=== PATIENT | female | born 1965 | race Caucasian/White ===

== ENCOUNTER 2017-01-14 12:36 | Emergency (ER) | payer OTHER ==
--- NOTE | ~2017-01-14 | CR229 ---
[facility] A Service of [facility] & [facility] RADIOLOGY TEXT RESULTS PATIENT: BRANT FISHMAN LOCATION: [facility] : 63 UNIT #: [id number] AGE: [address]: VIDYA MASTERS SEX: F ORDER DR: [id number] [facility] [address] [place], [place] [address] [id number] MR#: [id number] Acc #: [id number] NAME: BRANT FISHMAN. : 1965 SEX: F STUDY DATE/TIME: 01/14/2017 13:29 UNIT: [facility] ROOM: STUDY DESCRIPTION: CR Shoulder Min 2 View Lt Attending Physician: Vidya Masters Aprn Ordering Physician: Vidya Masters Aprn MEDICAL IMAGING REPORT This report is preliminary unless electronic signature is present EXAM Left shoulder. DATE OF EXAM 01/14/2017 HISTORY 51-year-old female with left shoulder pain, status post fall today. COMPARISON None. FINDINGS 3 views of the left shoulder demonstrate no acute fracture or dislocation. Acromioclavicular joint is unremarkable. Soft tissues are unremarkable. IMPRESSION Unremarkable left shoulder. Dictated by... Chetan Jimenez M.D. THIS IS AN ELECTRONICALLY VERIFIED REPORT Chetan Jimenez M.D. at 01/15/2017 8:13 AM MANISHA/maria guadalupe TD: 01/14/2017 17:18 JOB #: [id number] MEDICAL IMAGING REPORT Page 1 of 1 COPY
[~2017-01-14 12:36] MED LIST: ALPRAZOLAM PO; COUMADIN5 MG PO; HYDROCODON-ACE1 EAC1 PO; HYDROCODON-ACE1 EAC7 PO; HYDROCODON-ACE1 EACH PO; KLONOPIN1 MG PO; LORTAB 101 TAB 10/5 PO; LOVENOX SUBQ; METOPROLOL TART25 MG PO; MOBIC15 MG PO; PERCOCET 10-651 EACH PO; PHENERGAN DM1 ML PO; PHENERGAN25 MG PO; XANAX1 MG PO
[2017-01-14 13:51] LABS: URINE SOURCE CLEAN CATCH
[2017-01-14 14:02] LABS: URINE APPEARANCE TURBID; URINE BILIRUBIN NEG (NEG); URINE BLOOD NEG (NEG); URINE COLOR YELLOW; URINE GLUCOSE NEG (NEG); URINE KETONE NEG (NEG); URINE LEUKOCYTE ESTERASE 2+ (NEG); URINE NITRATE POS (NEG); URINE PH 6.5 (5-8); URINE PROTEIN TRACE (NEG); URINE SPECIFIC GRAVITY 1.022 (1.003-1.035)
[2017-01-14 14:04] LABS: CULTURE INDICATED? YES; URINE BACTERIA AUWI 4+ (NEGATIVE); URINE SQUAMOUS EPITHELIAL CELL MOD /[HPF]; UWBCS1 AUWI 100-200 (0-5)
== END 2017-01-14 15:00 | disposition home or self-care (01) ==
LOC: CFTX 12:36
PROVIDERS: Nurse Practitioner Family
DX: S46.912A Strain of unspecified muscle, fascia and tendon at shoulder and upper arm level, left arm, initial encounter (principal); F17.210 Nicotine dependence, cigarettes, uncomplicated; N39.0 Urinary tract infection, site not specified; Z79.899 Other long term (current) drug therapy; X58.XXXA Exposure to other specified factors, initial encounter
CPT/HCPCS: 73030; 81003; 87086; 87088; 87186; 99283

== ENCOUNTER 2017-02-28 16:05 | Emergency (ER) | payer OTHER ==
--- NOTE | ~2017-02-28 | HP ---
Unit #: [id number] #: [id number] Patient: BRANT FISHMAN [id number] [address] [place], [place] [address] [id number] I MR#: [id number] NAME: BRANT FISHMAN. ROOM: 8[address]37 Age: 51 Sex: F Admission Date: 02/28/2017 : 1965 Attending Physician: Lizzy Valero M.D. HISTORY AND PHYSICAL CHIEF COMPLAINT Facial swelling, shortness of breath. HISTORY OF PRESENT ILLNESS The patient is a 51-year-old female with a past medical history of COPD, uterine cancer, and polysubstance abuse, who presented to the emergency department for evaluation of the above. The patient states that she was in her usual state of health until about a week ago. She states that she her hair about eight days ago and started having facial swelling under the eyes and cheeks. Initially, she thought that maybe it was a reaction to the hair dye. She states that the swelling progressed to involve both arms. She has been intermittently short of breath, although she does have COPD. She reports an occasional nonproductive cough at baseline. She denies any fever. She has had night sweats. She denies any change in her weight. She states that she had an episode of right-sided chest pain a few weeks ago but none currently. Of note, the patient saw her primary care physician last week. Blood work was done, and she was told that it was normal. She was scheduled to follow up tomorrow with her primary care physician. In the emergency department, initial oxygen saturation was 100% on room air, respirations 18, and temperature 97.7. Chest x-ray showed right hilar fulness concerning for mass. CT of the chest was done and showed a spiculated mass, as well as right hilar lymphadenopathy versus mass all concerning for malignancy. The ER physician, Dr. Stewart, spoke with the radiologist regarding SVC involvement, and although it was not listed in the voice clip, he commented that the SVC was 70% stenosed in association with the mass. She is being admitted to [facility] for evaluation and further treatment. PAST MEDICAL HISTORY 1. Admission to [facility] March 24-2011, for acute respiratory failure secondary to polysubstance overdose requiring intubation. She also developed sepsis secondary to strep pneumo pneumonia. She also had a right upper extremity DVT in association with PICC line. 2. Uterine cancer, status post hysterectomy. 3. Chronic obstructive pulmonary disease with continued tobacco abuse. 4. History of polysubstance abuse, currently in the methadone clinic. PAST SURGICAL HISTORY 1. Hysterectomy. Unit #: [id number] #: [id number] Patient: BRANT FISHMAN 2. Colonoscopy. SOCIAL HISTORY The patient lives with her significant other. They have apparently been together for about 30 years. She smokes a pack of cigarettes daily. She denies alcohol use. She denies current illicit drug use. Toxicology screen from 2011 was positive for cocaine, methadone, and benzodiazepine. Toxicology screen today is positive for methadone and amphetamine. FAMILY HISTORY Notable for her father having prostate cancer. Her mother had "heart problems." ALLERGIES No known allergies. HOME MEDICATIONS Methadone. REVIEW OF SYSTEMS A complete review of systems is negative except as indicated in the History of Present Illness. The patient was treated for a urinary tract infection about two weeks ago with an unknown antibiotic. PHYSICAL EXAMINATION VITAL SIGNS: Temperature is 97.7, pulse 94, respirations 18, blood pressure 124/80, and oxygen saturation 100% on room air. GENERAL: Patient is a female who is awake, alert, and in no acute distress. HEENT: Head is atraumatic. There is periorbital edema (right greater than left). There is also edema involving the face with no appreciable erythema. NECK: Supple. There is extensive venous distention (right greater than left). CARDIOVASCULAR: Regular rate and rhythm. LUNGS: Relatively clear to auscultation bilaterally with no increased work of breathing. ABDOMEN: Soft and nontender with bowel sounds present in all four quadrants. EXTREMITIES: There is edema of bilateral upper extremities that is nonpitting. NEUROLOGIC: Patient is awake and alert. She follows commands. PSYCHIATRIC: Mood and affect are normal. Patient is cooperative. SKIN: Skin of examined areas is warm and dry. DIAGNOSTIC STUDIES LABORATORY: Toxicology screen is positive for methadone and amphetamine. Complete blood count notable for hemoglobin and hematocrit of 11.3 and 34.9, respectively. Urinalysis notable for 1+ leukocyte esterase, 25-50 white blood cells, and 4+ bacteria. Comprehensive metabolic panel notable for albumin of 3.4. BNP is 30. IMAGING: CT of the chest shows a spiculated mass involving the right lung with associated right hilar lymphadenopathy versus mass. The superior vena cava demonstrates 70% stenosis in association with the mass at the level of the right pulmonary artery. Chest x-ray shows right hilar fullness concerning for mass. Unit #: [id number] #: [id number] Patient: BRANT FISHMAN The patient is a 51-year-old female with: 1. 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 2. Hilar mass concerning for malignancy. 3. Chronic obstructive pulmonary disease with continued tobacco abuse. 4. Normocytic anemia. 5. Urinary tract infection. 6. History of uterine cancer. 7. History of polysubstance abuse, currently in methadone clinic. PLAN 1. Admit to intermediate level. 2. Healthy heart diet if passes bedside swallow. 3. N.p.o. after midnight for possible procedure. 4. Elevate head of bed. 5. Supplemental oxygen. 6. Continuous pulse oximetry. 7. P.r.n. DuoNebs. 8. Consult Dr. Humphries regarding hilar mass. The ER physician spoke with him regarding this patient, and he agrees to see her in consultation. 9. Consult Dr. Clarke regarding hilar mass concerning for malignancy. 10. Check EKG and cardiac enzymes. 11. P.r.n. Toradol. 12. P.r.n. Zofran. 13. P.r.n. Tylenol. 14. Urine culture and sensitivity on urine in the lab. 15. Rocephin 1 gram IV daily pending results of urine culture. 16. Repeat labs in the morning including INR. 17. Regarding code status, the patient is a Full Code. 1. Dictated by Musa Kahn TD: 02/28/2017 20:40 JOB #: [id number] HISTORY AND PHYSICAL Page 1 of 1 X Lizzy Valero MD HISTORY AND PHYSICAL
--- NOTE | ~2017-02-28 | CR72 ---
[facility] A Service of [facility] & [facility] & [facility] RADIOLOGY TEXT RESULTS PATIENT: BRANT FISHMAN [id number] 63 UNIT #: [id number] AGE: [address]: Shweta Stewart MD SEX: F ORDER DR: [id number] [facility] [address] [place], [place] [address] [id number] I MR#: [id number] Acc #: [id number] NAME: BRANT FISHMAN : 1965 SEX: F STUDY DATE/TIME: 02/28/2017 17:23 UNIT: [facility] ROOM: [id number] STUDY DESCRIPTION: CR Chest Single View Portable Attending Physician: Lizzy Valero M.D. Ordering Physician: Shweta Stewart M.D. MEDICAL IMAGING REPORT This report is preliminary unless electronic signature is present EXAM Portable chest HISTORY Shortness of air, facial swelling. History of uterine cancer, longstanding smoker. FINDINGS Portable view of the chest demonstrates a right hilar fullness and/or mass. There is also a small amount of right upper lobe scarring. Background parenchymal changes suggest mild emphysema. No effusions. Heart and great vessels unremarkable. Osseous structures appear normal. Given the patient's clinical history of shortness of air and facial swelling, concern could be made for possible SVC obstruction due to the patient's suspected right hilar mass. Followup cross-sectional imaging may be warranted. Dictated by... Joan Brooks M.D. THIS IS AN ELECTRONICALLY VERIFIED REPORT Joan Brooks M.D. at 03/01/2017 2:48 PM ROBERT/samir TD: 03/01/2017 00:20 JOB #: [id number] MEDICAL IMAGING REPORT Page 1 of 1 COPY
--- NOTE | ~2017-02-28 | EKG ---
PATIENT: BRANT FISHMAN UNIT #: [id number] Ventricular Rate: 79 BPM Atrial Rate: 79 BPM P-R Interval: 164 ms QRS Duration: 68 ms Q-T Interval: 404 ms QTC Calculation(Bezet): 463 ms P [place]: 68 degrees Calculated R [place]: 50 degrees Calculated T [place]: 61 degrees Diagnosis Line: Normal sinus rhythm Diagnosis Line: Normal ECG Diagnosis Line: When compared with ECG of 04-APR-2012 16:05, Diagnosis Line: Premature ventricular complexes are no longer Diagnosis Line: Present Diagnosis Line: Confirmed by HARRIS OLIVER MD ([id number]) on Diagnosis Line: 02/28/2017 10:57:53 PM INTERPRETING MD: MARIBEL
--- NOTE | ~2017-02-28 | CT16 ---
[facility] A Service of [facility] & [facility] RADIOLOGY TEXT RESULTS PATIENT: BRANT FISHMAN [id number] [birth year] UNIT #: [id number] AGE: [address]: Shweta Stewart MD SEX: F ORDER DR: [id number] [facility] [address] [place], [place] [address] [id number] I MR#: [id number] [facility] #: [id number] NAME: BRANT FISHMAN : 1965 SEX: F STUDY DATE/TIME: 02/28/2017 18:21 UNIT: [facility] ROOM: [id number] STUDY DESCRIPTION: CT Angio Chest for PE Attending Physician: Lizzy Valero M.D. Ordering Physician: Shweta Stewart M.D. MEDICAL IMAGING REPORT This report is preliminary unless electronic signature is present EXAM CT of the chest with contrast, PE protocol. INDICATIONS Shortness of breath for [address] of the chest was performed following the administration of IV contrast using the pulmonary embolism protocol. Coronal and sagittal reformatted images were obtained. This CT exam was performed with one or more of the following radiation dose reduction techniques: Automatic exposure control, adjustment of mA and/or kV according to patient size, and iterative reconstruction. Comparison is made with chest x-ray from today and chest CT from 02/10/2011. FINDINGS 2.4 x 1.5 cm spiculated mass in the right upper lobe. Mass extends into the right hilar region. Abnormal irregular parenchymal density in the posterior right upper lobe measuring 2.3 x 4.0 cm. Tiny nodule inferior right upper lobe on image 63. Curvilinear atelectasis and trace pleural fluid at the right base. Emphysema. There is a large mass/conglomerate of lymphadenopathy within the right paratracheal region in the right hilum. Index mass measures 4.7 x 5.1 cm. There is no evidence for pulmonary embolism; however, the mass does completely encase the right upper lobe branch pulmonary artery. It also immediately abuts and lies superior to the truncus arteriosus. Limited imaging of the upper abdomen is unremarkable. The bone windows are unremarkable. STS. [facility] A Service of [facility] & [facility] RADIOLOGY TEXT RESULTS PATIENT: BRANT FISHMAN [id number] [birth year] UNIT #: [id number] AGE: [address]: Shweta Stewart MD SEX: F ORDER DR: IMPRESSION Abnormal exam with findings strongly suspicious for lung cancer. There is a 2.4 cm spiculated mass in the right upper lobe and a large 4.0 x 2.3 cm irregular parenchymal consolidation more superiorly in the right upper lobe. Also, there is abnormal mass/lymphadenopathy within the right paratracheal region in the right hilum with abrupt cutoff of the right upper lobe pulmonary artery branch due to the mass. There is no evidence for pulmonary embolism. There is trace amount of right pleural fluid. Dictated by... Rogelio Brooks M.D. THIS IS AN ELECTRONICALLY VERIFIED REPORT Rogelio Brooks M.D. at 03/02/2017 3:24 PM JESSIE/alex TD: 03/01/2017 01:33 JOB #: [id number] MEDICAL IMAGING REPORT Page 1 of 1 COPY
[2017-02-28 17:22] LABS: URINE SOURCE CLEAN CATCH
[2017-02-28 17:27] LABS: BASOPHIL# 0.1 X10e3 (0-0.3); BASOPHIL% 1.4 % (0-2.5); EOSINOPHIL# 0.2 X10e3 (0-0.7); EOSINOPHIL% 4.2 % (0.0-7.0); HEMATOCRIT 34.9 % (35.0-45.0); HEMOGLOBIN 11.3 gm/dL (12.0-16.0); LYMPHOCYTE# 1.8 X10e3 (1.0-3.5); LYMPHOCYTE% 32.5 % (17.0-45.0); MEAN CELL VOLUME 87.3 FL (83-96); MEAN CORPUSCULAR HEMOGLOBIN 28.1 PG (28-34); MEAN CORPUSCULAR HGB CONC 32.2 g/dL (30-36); MEAN PLATELET VOLUME 7.8 FL (6.5-11.5); MONOCYTE# 0.5 X10e3 (0-1.0); NEUTROPHIL% 52.9 % (40-75); PLATELET COUNT 215 X10e3 (140-420); RED CELL DISTRIBUTION WIDTH 14.6 % (11.0-15.5); WHITE BLOOD COUNT 5.6 X10e3 (4.0-10.5)
[2017-02-28 17:28] LABS: DIFF IND NO
[2017-02-28 17:31] LABS: URINE APPEARANCE CLOUDY; URINE BILIRUBIN NEG (NEG); URINE BLOOD NEG (NEG); URINE COLOR YELLOW; URINE GLUCOSE NEG (NEG); URINE KETONE NEG (NEG); URINE LEUKOCYTE ESTERASE 1+ (NEG); URINE NITRATE NEG (NEG); URINE PH 6.5 (5-8); URINE PROTEIN NEG (NEG); URINE SPECIFIC GRAVITY 1.021 (1.003-1.035)
[2017-02-28 17:34] LABS: CULTURE INDICATED? YES; URBCS1 AUWI 0-2 /[HPF] (0-2); URINE BACTERIA AUWI 4+ (NEGATIVE); URINE SQUAMOUS EPITHELIAL CELL MOD /[HPF]; UWBCS1 AUWI 25-50 (0-5)
[2017-02-28 17:49] LABS: AMPHETAMINE POS (NEG); BARBITURATES NEG (NEG); BENZODIAZEPINES NEG (NEG); COCAINE NEG (NEG); MARIJUANA NEG (NEG); OPIATES NEG (NEG); TRICYCLIC ANTIDEPRESSANTS NEG (NEG); U METHADONE POS (NEG)
[2017-02-28 17:55] LABS: ALBUMIN SERUM 3.4 g/dL (3.5-5.0); ALKALINE PHOSPHATASE 74 U/L (32-92); ALT (SGPT) 18 U/L (10-40); AST (SGOT) 21 U/L (10-42); BILIRUBIN,TOTAL 0.5 mg/dL (0.2-2.0); BLOOD UREA NITROGEN 13 mg/dL (9-23); BUN/CREATININE RATIO 18.57; CALCIUM SERUM 8.5 mg/dL (8.4-10.2); CARBON DIOXIDE 29 mmol/L (22-31); CHLORIDE 102 mmol/L (100-111); CREATININE SERUM 0.7 mg/dL (0.6-1.4); GLOM FILT RATE Estimated 99.6 mL/min (>60); GLUCOSE FASTING 74 mg/dL (70-110); POTASSIUM 3.7 mmol/L (3.5-5.1); PROTEIN TOTAL SERUM 6.9 g/dL (6.0-8.3); SODIUM 136 mmol/L (135-145)
[2017-02-28 17:57] LABS: BILIRUBIN, DIRECT <0.1 mg/dL (0.0-0.2); BILIRUBIN,INDIRECT 0.4 mg/dL (0.0-0.9)
[2017-02-28 21:08] LABS: %MB 5.3 % (0.0-4.0); MB 6.9 ng/ml
[2017-02-28] MEDS ORDERED: PRAVACHOL PO (21:19)
[2017-02-28] MEDS ORDERED: METOPROLOL SUCC25 MG PO (21:19)
[2017-02-28] MEDS ORDERED: NEXIUM PO (21:19)
[2017-02-28] MEDS ORDERED: HYDRALAZINE HCL25 MG PO (21:19)
[2017-02-28] MEDS ORDERED: DICYCLOMINE HCL20 MG PO (21:20)
[2017-02-28] MEDS ORDERED: CYMBALTA30 MG PO (21:20)
[2017-02-28] MEDS ORDERED: BUMEX2 MG PO (21:20)
[2017-02-28] MEDS ORDERED: OXCARBAZEPINE150 MG PO (21:21)
[2017-02-28] MEDS ORDERED: AMLODIPINE BESYL5 MG PO (21:21)
[2017-02-28] MEDS ORDERED: CARBATROL200 MG PO (21:22)
[2017-02-28] MEDS ORDERED: SUMATRIPTAN SUC25 MG PO (21:22)
[2017-02-28] MEDS ORDERED: DOCUSATE SODIU100 MG PO (21:23)
[2017-02-28] MEDS ORDERED: LOPERAMIDE HCL2 M1 PO (21:23)
[2017-02-28] MEDS ORDERED: PHENERGAN PO (21:23)
[2017-02-28] MEDS ORDERED: FLOVENT DISKUS50 MCG INH (21:24)
[2017-02-28] MEDS ORDERED: ATROVENT HFA12.9 G1 INH (21:25)
[2017-02-28] MEDS ORDERED: ALBUTEROL17 GM INH (21:25)
[2017-02-28] MEDS ORDERED: ALBUTEROL2.5 MG/3 M NEB (21:25)
[2017-02-28] MEDS ORDERED: ADVAIR 500-501 EACH INH (21:26)
[2017-02-28] MEDS ORDERED: HYDROCODON-ACE1 EAC9 PO (21:26)
[2017-02-28] MEDS ORDERED: GABAPENTIN800 MG PO (21:27)
== END 2017-02-28 22:58 | disposition left against medical advice (07) ==
LOC: CED 16:05 → CEDOF 20:05 → CED 20:05 → CEDOF 03-01 07:58
PROVIDERS: Family Medicine; Student in an Organized Health Care Education/Training Program
DX: I87.1 Compression of vein (principal); R91.8 Other nonspecific abnormal finding of lung field; R60.0 Localized edema; R06.00 Dyspnea, unspecified; J44.9 Chronic obstructive pulmonary disease, unspecified; F17.200 Nicotine dependence, unspecified, uncomplicated; Z90.710 Acquired absence of both cervix and uterus
CPT/HCPCS: 36415; 71010; 71275; 80048; 80076; 80307; 81003; 82550; 82553; 83880; 84484; 85025; 87086; 93005; 99291; J0696; J1885; Q9967